=== PATIENT | female | born 1995 | race African-American/Black ===

== ENCOUNTER 2021-02-15 16:42 | Emergency (ER) | payer OTHER, SELFPAY ==
[2021-02-15 16:44] VITALS: BP 136/75; PULSE 65; RESP 18; TEMP 37; O2SAT 100
--- NOTE | 2021-02-15 17:47 | ED.SKABFB ---
HPI - Skin/Abscess/Foreign Bdy General Chief complaint: Skin/Abscess/Foreign Body Stated complaint: spider bite Time Seen by Provider: 02/15/21 17:40 Source: patient Mode of arrival: ambulatory Limitations: no limitations History of Present Illness HPI narrative: This is a 25 year old female that presents to the ER for redness and swelling to the right thigh since yesterday. Reports worsening today which prompted her to be seen. Denies fever. Related Data Allergies Allergy/AdvReac Type Severity Reaction Status Date / Time No Known Allergies Allergy Verified 02/15/21 16:45 Review of Systems Review of Systems: CONSTITUTIONAL: Denies fever SKIN: Reports rash All systems reviewed & are unremarkable except as noted in HPI and below PMFSH Past Medical History Medical History (Updated 02/15/21 @ 17:58 by Mercedes Salas PA-C) No active medical problems Social History Social History (Updated 02/15/21 @ 17:50 by Mercedes Salas PA-C) Smoking status: Never smoker Substance use: never Gender identity (if verbalized by the patient): Female Exam Narrative: GENERAL: Well-appearing, well-nourished, and in no acute distress. HEAD: Normocephalic, atraumatic. EYES: EOMI. EXTREMITIES: Normal range of motion. No edema. Right medial thigh with moderate area of erythema and induration without central fluctuance to suggest abscess SKIN: Warm, dry, no rash. NEURO: No focal deficits. Alert and oriented x3. PSYCH: Normal mood and affect Course Vital Signs Vital signs: Vital Signs Temperature 98.6 F 02/15/21 16:44 Pulse Rate 65 02/15/21 16:44 Respiratory Rate 18 02/15/21 16:44 Blood Pressure 136/75 02/15/21 16:44 Pulse Oximetry 100 02/15/21 16:44 Temperature 98.6 F 02/15/21 16:44 Pulse Rate 65 02/15/21 16:44 Respiratory Rate 18 02/15/21 16:44 Blood Pressure 136/75 02/15/21 16:44 Pulse Oximetry 100 02/15/21 16:44 MDM - Skin/Abscess/Foreign Bdy MDM Narrative Medical decision making narrative: Patient presents to the emergency department for an area of cellulitis to the right thigh present over the last couple of days. She is afebrile and nontoxic-appearing. No central fluctuance to suggest abscess. Patient will be started on oral antibiotics and was instructed to follow-up with her primary doctor. She was given warnings to return to the ER Critical Care Time Critical Care Time Critical Care Time: No Discharge Plan Discharge Clinical Impression: Cellulitis Qualifiers: Site of cellulitis: extremity Site of cellulitis of extremity: lower extremity Laterality: right Qualified Code(s): L03.115 - Cellulitis of right lower limb Patient Disposition: Home, Self-Care Condition: Stable Instructions: Antibiotic Form, Cellulitis (ED) Additional Instructions: Return the emergency department if you experience fever, increasing redness and swelling of your leg, or any other symptoms that are concerning to you Take oral antibiotics as prescribed. Tylenol or ibuprofen as needed for discomfort Follow-up with your primary care doctor Prescriptions: New doxycycline hyclate 100 mg capsule 100 mg PO BID 7 Days Qty: 14 RF: 0 Follow-up/Referrals: Juli,Carito Bustos MD [Primary Care Provider] - 3 Days
[2021-02-15 18:15] VITALS: BP 130/72; PULSE 64; RESP 18; O2SAT 99
== END 2021-02-15 18:15 | disposition home or self-care (01) ==
PROVIDERS: Emergency Provider Emergency Medicine; PCP Family Medicine
DX: L03.115 Cellulitis of right lower limb (principal)
CPT/HCPCS: 99283

== ENCOUNTER 2024-12-11 20:59 | Emergency (ER) | payer OTHER, SELFPAY ==
--- NOTE | ~2024-12-11 | XR_ITS ---
Portable chest x-ray Comparison: None Clinical History: Shortness of breath Findings: Lungs are clear, without focal consolidation or pleural effusion. Cardiomediastinal silho uette is unremarkable. Bones and soft tissues are unremarkable. Impression: Normal chest. Reviewed, dictated and finalized at [facility]. Impression: Normal chest.
[2024-12-11 21:13] VITALS: BP 132/83; PULSE 73; RESP 18; TEMP 36.7; O2SAT 99
--- NOTE | 2024-12-12 00:46 | ECG_ITS ---
Test Date: 2024-12-12 01:08:02 Measurements Intervals [place] Rate: 52 P: 55 OR: 170 QRS: 37 QRSD: 93 T: 29 QT: 430 QTc: 401 Interpretive Statements SINUS BRADYCARDIA BASELINE ARTIFACT- I, III, AVL BORDERLINE ECG No previous ECG available for comparison Electronically Signed On 12-12-2024 07:08:53 CDT by Bob Ventura D.O.
[2024-12-12 01:06] VITALS: PULSE 64
[2024-12-12 01:10] VITALS: BP 110/71; PULSE 57; RESP 14; O2SAT 100
[2024-12-12 01:10] LABS: Basophils Percent Auto 0.6 % (0.2-1.2); Eosinophils Absolute Auto 0.2 K/mm3 (0-0.3); Eosinophils Percent Auto 2.6 % (0-4.4); Hematocrit 34.7 % (37.0-47.0); Hemoglobin 11.1 g/dL (12.0-15.0); Immature Granulocyte Absolute 0.02 K/mm3 (0.00-0.031); Immature Granulocyte Percent A 0.3 % (0-0.5); Lymphocytes Absolute Auto 2.21 K/mm3 (0.9-3.2); Lymphocytes Percent Auto 35.6 % (18.3-44.2); Mean Corpuscular Volume 81.3 fl (80-100); Monocytes Absolute Auto 0.6 K/mm3 (0.1-0.6); Monocytes Percent Auto 9.5 % (2.6-8.5); Neutrophils Absolute Auto 3.2 K/mm3 (1.3-6.7); Neutrophils Percent Auto 51.4 % (45.5-73.1); Platelet Count Result 290 k/mm3 (150-375); Red Blood Count 4.27 M/mm3 (4.2-5.4); Red Cell Distribution Width 13.6 % (11.5-14.5); White Blood Count 6.2 K/mm3 (4.5-10.0)
[2024-12-12] MEDS: SODIUM CHLORIDE 0.9% IV 1,000 ML 999 ML IV CONT (01:10)
[2024-12-12 01:22] LABS: Alanine Aminotransferase 20 U/L (6-35); Alkaline Phosphatase 71 U/L (38-126); Anion Gap 7 mmol/L (4-12); Aspartate Amino Transferase 30 U/L (14-36); Bilirubin,Total 0.2 mg/dL (0.2-1.3); Blood Urea Nitrogen 12 mg/dL (7-17); Carbon Dioxide 25 mmol/L (22-30); Chloride 105 mmol/L (98-107); Estimated CRCL calculation 103 ml/min; Estimated Glomerular Filt Rate > 60; Glucose 95 mg/dL (65-110); Magnesium 1.8 mg/dL (1.6-2.3); Potassium 3.9 mmol/L (3.4-5.0); Sodium 137 mmol/L (137-145); Total Protein 7.8 g/dL (6.3-8.2)
[2024-12-12 01:23] LABS: Lactic Acid Reflex 0.5 mmol/L (0.7-2.0)
[2024-12-12 01:31] LABS: D Dimer < 0.27 ug/mL (<0.48)
--- NOTE | 2024-12-12 01:35 | ED_ITS ---
HPI - General Adult General Chief complaint: Dizziness Stated complaint: every time i stand up I get dizzy Time Seen by Provider: 12/12/24 00:27 History of Present Illness HPI narrative: Patient 29-year-old female who presents emergency department chief complaint of lightheadedness. Patient states whenever she stands up she gets tingling over her body and feels lightheaded as though she is going to pass out the patient denies chest pain denies shortness of breath denies abdominal pain denies vomiting or diarrhea. Patient states symptoms have been ongoing for the last several days Related Data Allergies Allergy/AdvReac Type Severity Reaction Status Date / Time No Known Allergies Allergy Verified 02/15/21 16:45 Review of Systems 2 Review of Systems: A 10 system review of systems was completed on the patient and is negative except for what is stated in the HPI. Nursing and ancillary documentation was reviewed. PMFSH Past Medical History Medical History No active medical problems Social History Social History Smoking status: Never smoker Substance use: never Gender identity (if verbalized by the patient): Female Exam 2 Narrative: GENERAL: Well-appearing, well-nourished, and in no acute distress. HEAD: Normocephalic, atraumatic. EYES: PERRLA and EOMI. ENT: Nares clear, no rhinorrhea or epistaxis. Mucous membranes moist. NECK: Supple. CHEST: Clear to auscultation. No respiratory distress. HEART: Regular rate and rhythm. No murmur heard. Normal peripheral pulses. ABDOMEN: Soft, nontender, nondistended, normal active bowel sounds. EXTREMITIES: Normal range of motion. No edema. SKIN: Warm, dry, no rash. NEURO: No focal deficits. Alert and oriented x3. PSYCH: Normal mood and affect. Course Vital Signs Vital signs: Vital Signs Temperature 36.7 C 12/11/24 21:13 Pulse Rate 73 12/11/24 21:13 Respiratory Rate 18 12/11/24 21:13 Blood Pressure 132/83 12/11/24 21:13 Pulse Oximetry 99 12/11/24 21:13 Oxygen Delivery Room Air 12/11/24 21:13 Temperature 36.7 C 12/11/24 21:13 Pulse Rate 72 12/12/24 02:53 Respiratory Rate 14 12/12/24 01:10 Blood Pressure 134/85 12/12/24 02:53 Pulse Oximetry 100 12/12/24 01:10 Oxygen Delivery Room Air 12/11/24 21:13 Medical Decision Making MDM Narrative Medical decision making narrative: Differential diagnosis includes dehydration, vertigo, and near syncope EKG showed no acute ischemic changes electrolytes are within normal limits chest x-ray showed no focal findings Vital Signs Vital Signs: Vital Signs Temperature 36.7 C 12/11/24 21:13 Pulse Rate 73 12/11/24 21:13 Respiratory Rate 18 12/11/24 21:13 Blood Pressure 132/83 12/11/24 21:13 Pulse Oximetry 99 12/11/24 21:13 Oxygen Delivery Room Air 12/11/24 21:13 Temperature 36.7 C 12/11/24 21:13 Pulse Rate 72 12/12/24 02:53 Respiratory Rate 14 12/12/24 01:10 Blood Pressure 134/85 12/12/24 02:53 Pulse Oximetry 100 12/12/24 01:10 Oxygen Delivery Room Air 12/11/24 21:13 Lab Data 12/12/24 01:05 12/12/24 01:05 Labs: Lab Results 12/12/24 12/12/24 12/12/24 Range/Units 01:05 02:09 02:11 WBC 6.2 (4.5-10.0) K/mm3 RBC 4.27 (4.2-5.4) M/mm3 Hgb 11.1 L (12.0-15.0) g/dL Hct 34.7 L (37.0-47.0) % MCV 81.3 (80-100) fl MCH 26.0 (26-34) pg MCHC 32.0 (32-36) g/dl RDW 13.6 (11.5-14.5) % Plt Count 290 (150-375) k/mm3 MPV 10.0 (7.4-10.4) fl Immature Gran % (Auto) 0.3 (0-0.5) % Neut % (Auto) 51.4 (45.5-73.1) % Lymph % (Auto) 35.6 (18.3-44.2) % Dukes % (Auto) 9.5 H (2.6-8.5) % Eos % (Auto) 2.6 (0-4.4) % Baso % (Auto) 0.6 (0.2-1.2) % Lymph # (Auto) 2.21 (0.9-3.2) K/mm3 Dukes # (Auto) 0.6 (0.1-0.6) K/mm3 Eos # (Auto) 0.2 (0-0.3) K/mm3 Baso # (Auto) 0.0 (0.0-0.1) K/mm3 Abs Immat Gran (auto) 0.02 (0.00-0.031) K/mm3 Absolute Neuts (auto) 3.2 (1.3-6.7) K/mm3 Absolute Nucleated RBC 0.000 (0.0-0.012) K/mm3 Nucleated RBC % 0.0 (0.0-0.2) % D-Dimer < 0.27 (<0.48) ug/mL Sodium 137 (137-145) mmol/L Potassium 3.9 (3.4-5.0) mmol/L Chloride 105 (98-107) mmol/L Carbon Dioxide 25 (22-30) mmol/L Anion Gap 7 (4-12) mmol/L BUN 12 (7-17) mg/dL Creatinine 0.73 (0.7-1.0) mg/dL Estim Creat Clear Calc 103 ml/min Estimated GFR > 60 (59 - ) Glucose 95 (65-110) mg/dL Lactic Acid 0.5 L (0.7-2.0) mmol/L Calcium 9.0 (8.4-10.2) mg/dL Magnesium 1.8 (1.6-2.3) mg/dL Total Bilirubin 0.2 (0.2-1.3) mg/dL AST 30 (14-36) U/L ALT 20 (6-35) U/L Alkaline Phosphatase 71 (38-126) U/L Total Protein 7.8 (6.3-8.2) g/dL Albumin 4.0 (3.5-5.1) g/dL Urine Color Pending Urine Appearance Pending Urine pH Pending Ur Specific [place] Pending Urine Protein Pending Urine Glucose (UA) Pending Urine Ketones Pending Ur Blood (Man) Pending Urine Nitrate Pending Urine Bilirubin Pending Urine Urobilinogen Pending Leukocyte Esterase Rfl Pending POC Urine HCG, Qual Negative (Negative) Discharge Plan Discharge Clinical Impression: Near syncope Patient Disposition: Home Condition: Stable Instructions: Antibiotic Form, Near Syncope (ED) Patient Language: Tristanian Prescriptions: No Action doxycycline hyclate 100 mg capsule 100 mg PO BID 7 Days Qty: 14 0RF Follow-up/Referrals: Juli,Carito Bustos MD [Primary Care Provider] - Time of Disposition: 03:01
[2024-12-12 02:13] LABS: BEDSIDEPREGUCG Negative (Negative)
[2024-12-12 02:51] VITALS: BP 133/83; BP 134/94; PULSE 56; PULSE 70
[2024-12-12 02:53] VITALS: BP 134/85; PULSE 72
[2024-12-12 03:03] LABS: Add Urine Microscopic? YES; Appearance Urine Cloudy (Clear); Bacteria Urine 1+ /hpf; Bilirubin Urine Negative (Negative); Blood Urine 3+ (Negative); Color Urine Yellow (Yellow); Glucose Urine UA Negative (Negative); Ketones Urine Negative (Negative); Leukocyte Esterase Ur 3+ LEU/UL (Negative); Need Manual Microscopic Reviewed; Nitrate Urine Negative (Negative); Non Pathogenic Casts 0-2; Protein Urine Negative (Negative); Specific Grav Ur 1.016 (1.001-1.035); Squamous Epithelial Cell Urine Occasional /hpf (Few); WBC Urine 21-50 /hpf (0-3); pH Urine 7.5 (5.0-9.0)
[2024-12-12 03:30] VITALS: BP 132/80; PULSE 53; RESP 16; O2SAT 100
== END 2024-12-12 03:30 | disposition home or self-care (01) ==
PROVIDERS: Emergency Provider Emergency Medicine; PCP Family Medicine
DX: R55 Syncope and collapse (principal)
CPT/HCPCS: 36415; 71045; 80053; 81001; 81025; 83605; 83735; 85025; 85380; 87086; 93005; 96360; 99284; J7030